=== PATIENT | female | born 1965 | race Caucasian/White ===

== ENCOUNTER 2016-08-29 14:30 | Emergency (ER) | payer OTHER ==
[~2016-08-29] VITALS: Ht 172.7 cm; Wt 67.8 kg
[~2016-08-29 14:30] MED LIST: IBUP800T25 PO; INSULIN SQ; LOVASTATIN PO; METF-480 PO; NAPR-260 PO; OMEP40CA3 PO; SITA100T8 PO; TRAM50TA2 PO
[2016-08-29 14:55] VITALS: Ht 172.7 cm; Wt 67.8 kg
[2016-08-29] MEDS ORDERED: ONDANSETRON (ODT) 4 MG TAB ODT STA (17:24)
[2016-08-29] MEDS ORDERED: KETOROLAC 60 MG INJ IM STA (17:24)
[2016-08-29] MEDS ORDERED: HYDROCODONE/APAP (5/325) TAB PO ONE (17:30)
--- NOTE | 2016-08-29 18:14 | RADRPT ---
PROCEDURE: XR shoulder. CLINICAL INDICATION: Pain for months TECHNIQUE: Three views of the left shoulder were performed. COMPARISON: None available. FINDINGS: There is normal mineralization and alignment. No fracture or osseous lesion is identified. Mild narr owing of the glenohumeral joint is present. The acromioclavicular articulation is intact. Curviline ar calcification in the region of the greater tuberosity is consistent with calcific tendinosis/burs itis RPTAT:HJJR IMPRESSION: 1. Calcific tendinosis/bursitis of the left shoulder. 2. Mild glenohumeral joint degenerative narrowing. Physician Monika Date Time Electronically viewed and signed by Physician Monika on 08/29/2016 18:13 JR/
[2016-08-29] MEDS ORDERED: TRAM50TA2 PO (18:26)
[2016-08-29] MEDS ORDERED: NAPR-260 PO (18:27)
[2016-08-29 19:01] VITALS: BP 160/77; PULSE 72; RESP 18; TEMP 98.7
--- NOTE | 2016-08-29 19:11 | ERD ---
ER Documentation Chief Complaint Date/Time DATE: 08/29/16 TIME: 19:10 Chief Complaint LT SIDED NECK & ARM PAIN STARTING YESTERDAY HPI This patient is a 51-year-old female with history of chronic left shoulder and arm pain with cervical radiculopathy, type 2 diabetes, and elevated cholesterol presenting to the emergency department for severe left shoulder pain with radiation to the left arm and left hand ongoing for 8 months but worsening over the past week. The patient has taken ibuprofen at home with no relief of symptoms. The patient states the pain sometimes wakes her up from sleep. The patient took no medication today. The patient denies any falls, trauma, or other symptoms at this time peer ROS All systems reviewed and are negative except as per history of present illness. Medications Home Meds Active Scripts Naproxen* (Naprosyn*) 500 Mg Tablet, 500 MG PO BID Y for PAIN AND/OR INFLAMMATION, #30 TAB Prov:JACKIE BLANCO PA-C 08/29/16 Tramadol HCl (Tramadol HCl) 50 Mg Tablet, 50 MG PO Q4 Y for PAIN, #20 TAB Prov:JACKIE BLANCO PA-C 08/29/16 Naproxen* (Naprosyn*) 500 Mg Tablet, 500 MG PO BID Y for PAIN AND/OR INFLAMMATION, #30 TAB Prov:ROBEL VILLA PA-C 04/15/16 Tramadol HCl (Tramadol HCl) 50 Mg Tablet, 50 MG PO Q6 Y for PAIN, #20 TAB Prov:ROBEL VILLA PA-C 04/15/16 Reported Medications [Lovastatin] No Conflict Check, PO 03/28/15 [Insulin] No Conflict Check, SQ 03/28/15 Ibuprofen* (Ibuprofen*) 800 Mg Tablet, 800 MG PO Q8, TAB 03/28/15 Omeprazole* (Prilosec*) 40 Mg Capsule.dr, 40 MG PO DAILY, CAP 10/05/14 Sitagliptin* (Januvia*) 100 Mg Tablet, 100 MG PO DAILY, TAB 10/05/14 Metformin* (Glucophage*) 850 Mg Tablet, 850 MG PO BID WITH MEALS, TAB 10/05/14 Allergies Allergies: Coded Allergies: No Known Allergy (Unverified , NS, 08/29/16) PMhx/Soc History of Surgery: Yes (APPENDECTOMY, ) Anesthesia Reaction: No Hx Neurological Disorder: No Hx Respiratory Disorders: No Hx Cardiac Disorders: Yes (HYPERCHOLESTEROLEMIA; HYPERTENSION) Hx Psychiatric Problems: No Hx Miscellaneous Medical Probl: Yes (dm) Hx Alcohol Use: No Hx Substance Use: Yes (OCCASIONAL) Hx Tobacco Use: No Smoking Status: Never smoker FmHx Noncontributory for chief complaint Physical Exam Vitals Vital Signs Date Time Temp Pulse Resp B/P Pulse Ox O2 Delivery O2 Flow Rate FiO2 08/29/16 19:01 98.7 72 18 160/77 98 Room Air 08/29/16 14:55 98.6 88 16 131/61 95 Physical Exam INITIAL VITAL SIGNS: Reviewed by me. GENERAL: Alert and interactive. No acute distress. HEAD: Head is normocephalic and atraumatic. EYES: EOMI. No scleral icterus. No conjunctival injection. ENT: Moist mucosa. NECK: Supple. Full range of motion. RESPIRATORY: Normal respiratory effort. Clear breath sounds bilaterally. No wheezing, rales, or rhonchi. CV: Regular rate and rhythm. Normal S1 S2. No S3 or S4. No murmurs. ABDOMEN: Soft, non-distended, non-tender. No guarding. No rebound. No masses. EXTREMITIES: The patient has tenderness to palpation of the left shoulder with slightly limited passive and active range of motion secondary to pain. The patient has no point tenderness to the left humerus, left forearm, or the left hand. There is no ecchymosis noted to the left upper extremity. There is no edema noted to the left upper extremity. All other extremities are normal in appearance. SKIN: Warm and dry. NEUROLOGIC: Alert and oriented x 4. Speech is normal. Moves all extremities equally. No motor or sensory deficits noted. Results 24 hrs Current Medications Medications (Trade) Dose Ordered Sig/Lauren Route PRN Reason Start Time Stop Time Status Last Admin Dose Admin Ketorolac Tromethamine (Toradol) 60 mg ONCE STAT IM 08/29/16 17:24 08/29/16 17:27 DC 08/29/16 17:47 Acetaminophen/ Hydrocodone Bitart (Genoa (5/325)) 1 tab ONCE ONCE PO 08/29/16 17:30 08/29/16 17:31 DC 08/29/16 17:47 Ondansetron HCl (Zofran Odt) 4 mg ONCE STAT ODT 08/29/16 17:24 08/29/16 17:27 DC 08/29/16 17:46 Procedures/MDM EMERGENCY DEPARTMENT COURSE / MEDICAL DECISION MAKING: This is a 51-year-old female who comes to the emergency room secondary to complaints of left shoulder and left arm pain. The patient was given IM Toradol and p.o. Zofran and p.o. Genoa in the department. On re-evaluation, the patient was feeling improved. Radiology: PROCEDURE: XR shoulder. CLINICAL INDICATION: Pain for months TECHNIQUE: Three views of the left shoulder were performed. COMPARISON: None available. FINDINGS: There is normal mineralization and alignment. No fracture or osseous lesion is identified. Mild narrowing of the glenohumeral joint is present. The acromioclavicular articulation is intact. Curvilinear calcification in the region of the greater tuberosity is consistent with calcific tendinosis/ bursitis RPTAT:HJJR IMPRESSION: 1. Calcific tendinosis/bursitis of the left shoulder. 2. Mild glenohumeral joint degenerative narrowing. Physician Monika Date Time Electronically viewed and signed by Physician Monika on 08/29/2016 18:13 An EKG was obtained due to the nature of the patient's left arm pain. EKG: Interpreted by ED physician Rate/Rhythm: Normal sinus rhythm with a rate of 87 bpm. Normal axis. Normal intervals QRS, ST, T-waves: No changes consistent w/ acute ischemia Impression: No evidence of ischemia or arrhythmia The primary diagnosis is left shoulder pain most likely attributed to tendinosis and degenerative changes. I have low suspicion for septic joint, cellulitis, shoulder dislocation, fracture, or other emergent conditions at this time. Discharge: I have discussed the lab results and diagnostic findings with the patient and answered any questions or concerns. The patient was discharged with a prescription for naproxen and tramadol. The patient was advised to followup with their PMD in 1-2 days and to return to the Emergency Department if there are any new or worsening symptoms. The patient was advised to see an orthopedic surgeon or specialist if symptoms continue and she understands and agrees with this information. The patient understood and agreed with the diagnosis, treatment and plan. The patient is stable for discharge at this time. Departure Diagnosis: Primary Impression: Left shoulder pain Chronicity: chronic Qualified Code: M25.512 - Chronic left shoulder pain Condition: Fair Patient Instructions: Shoulder Pain (Uncertain Cause) [facility] Usted se castle hecho un examen mdico de control que le indica que no est en karen condicin que requiera tratamiento urgente en el Departamento de Emergencia. Un estudio ms profundo y el tratamiento de michaud condicin pueden esperar sin ningn riesgo hasta que usted sea atendida/o en el consultorio de michaud mdico o karen cl river. Es responsabilidad suya arreglar karen cammie para el seguimiento del kim. MANEJO DE CONDICIONES NO URGENTES EN EL FUTURO 1) Si usted tiene un mdico de atencin primaria: Usted debera llamar a michaud mdico de atencin primaria antes de venir al departamento de emergencia. Despus de las horas de consultorio, michaud doctor o michaud asociado/a est disponible por telfono. El mdico o enfermero de bailey en el servicio telefnico puede asesorarle por brian medio para atender el problema, o kim contrario se puede programar karen cammie. 2) Si usted no tiene un mdico de atencin primaria: Llame al mdico o clnica de referencia que aparece abajo viraj las horas de consultorio para hacer karen cammie para que le vean. CLINICAS: [facility] [phone] [address] [facility] [phone] [facility] [phone] [address] [facility] [phone] [address] [facility] [phone] [address] [facility] [phone] [address] Additional Instructions: No mas mejor en 2-3 perez, regresar. Mas peor en 24 horas, regresear rapidamente. Ir a doctor primario in 5-7 perez. Usar instrucciones cuando joan medicamento. JACKIE BLANCO PA-C Aug 29, 2016 19:11
== END 2016-08-29 19:01 | disposition home or self-care (01) ==
LOC: FTE 14:30
DX: M25.512 Pain in left shoulder (principal); I10 Essential (primary) hypertension; E11.9 Type 2 diabetes mellitus without complications; Z79.4 Long term (current) use of insulin; Z79.84 Long term (current) use of oral hypoglycemic drugs
CPT/HCPCS: 73030; 93005; 96372; J1885; Z7502; Z7610

== ENCOUNTER 2017-06-12 05:35 | Day surgery (SDC) | payer OTHER ==
[2017-06-11 09:35] VITALS: BMI 23.1
[~2017-06-12] VITALS: Ht 162.6 cm; Wt 64.4 kg
[2017-06-12] VITALS (15 sets, daily range): BP systolic 87–124; BP diastolic 62–77; PULSE 63–100; RESP 6–23; Ht 162.6 cm; Wt 64.4 kg
[2017-06-12] MEDS ORDERED: CEFAZOLIN 2 GM/50 ML (PMX) 50 ML IVPB SCH (06:00)
[2017-06-12] MEDS ORDERED: SUCR1TAB56 PO (06:25)
[2017-06-12] MEDS ORDERED: HYDROXYCHLOROQUINE PO (06:25)
[2017-06-12] MEDS ORDERED: CYCL-319 PO (06:25)
[2017-06-12] MEDS ORDERED: LOVA20TA PO (06:25)
[2017-06-12] MEDS ORDERED: METF1000 PO (06:25)
[2017-06-12] MEDS ORDERED: FOLI-49 PO (06:25)
[2017-06-12] MEDS ORDERED: INSU100I33 SC (06:25)
[2017-06-12] MEDS ORDERED: PANT40TA4 PO (06:25)
[2017-06-12] MEDS ORDERED: GEMF600T60 PO ×2 (06:25)
[2017-06-12] MEDS ORDERED: LEFL20TA18 PO (06:25)
[2017-06-12] MEDS ORDERED: BUPIVACAINE 0.5% (SDV) 30 ML INJ ONE (06:41)
[2017-06-12] MEDS ORDERED: LIDOCAINE 2% (SDV) 5 ML INJ ONE (07:00)
[2017-06-12] MEDS ORDERED: ROCURONIUM 50 MG INJ ONE (07:00)
[2017-06-12] MEDS ORDERED: CEFAZOLIN 1 GM INJ ONE (07:00)
--- NOTE | 2017-06-12 07:02 | HPN ---
Date/Time of Note Date/Time of Note DATE: 06/12/17 TIME: 07:02 Interval H&P Admission Note Pt. seen H&P reviewed: No system changes DARYL TEE DPM Jun 12, 2017 07:02
[2017-06-12] MEDS ORDERED: PROPOFOL 20 ML ONE (07:18)
[2017-06-12] MEDS ORDERED: FENTAnyl 50 MCG/ML VIAL ONE (07:22)
[2017-06-12] MEDS ORDERED: BUPIVACAINE 0.5% (SDV) 30 ML INJ INJ ONE (07:30)
[2017-06-12] MEDS ORDERED: ACETAMINOPHEN 1000MG/100ML IV 100 ML ONE (07:56)
[2017-06-12] MEDS ORDERED: KETOROLAC 30 MG INJ ONE (07:56)
[2017-06-12] MEDS ORDERED: DEXAMETHASONE 4 MG/ML 1 ML INJ ONE (07:59)
[2017-06-12] MEDS ORDERED: ONDANSETRON 4 MG INJ ONE (07:59)
[2017-06-12] MEDS ORDERED: SUGAMMADEX SODIUM 200 MG/2 ML VIAL IV ONE (08:17)
[2017-06-12] MEDS ORDERED: EPHEDrine SULFATE 50 MG/5 ML SYG IV PRN (08:30)
[2017-06-12] MEDS ORDERED: MEPERIDINE 25 MG INJ IV PRN (08:30)
[2017-06-12] MEDS ORDERED: KETOROLAC 30 MG INJ IV PRN (08:30)
[2017-06-12] MEDS ORDERED: hydrALAzine 20 MG INJ IV PRN (08:30)
[2017-06-12] MEDS ORDERED: DIPHENHYDRAMINE 50 MG INJ IV PRN (08:30)
[2017-06-12] MEDS ORDERED: ONDANSETRON 4 MG INJ IV PRN (08:30)
[2017-06-12] MEDS ORDERED: HYDROmorphONE (0.2 MG/ML) 10ML SYG IV PRN ×2 (08:30)
[2017-06-12] MEDS ORDERED: LABETALOL HCL 20MG INJ IV PRN (08:30)
[2017-06-12] MEDS ORDERED: FENTAnyl 50 MCG/ML VIAL IV PRN ×3 (08:30)
[2017-06-12] MEDS ORDERED: OXYCODONE/ACETAMINOPHEN (5/325) TAB PO PRN (08:30)
[2017-06-12] MEDS ORDERED: MIDAZOLAM 1 MG/ML 2 ML INJ IV PRN (08:30)
[2017-06-12] MEDS ORDERED: METOCLOPRAMIDE 10 MG INJ IV PRN (08:30)
[2017-06-12] MEDS: HYDROmorphONE (0.2 MG/ML) 10ML SYG IV PRN ×4 (08:35→09:29)
--- NOTE | 2017-06-12 08:35 | SIPON ---
Date/Time of Note Date/Time of Note DATE: 06/12/17 TIME: 08:33 Operative Report Preoperative Diagnosis Exostosis of right hallux Exostosis of left hallux Right big toe pain Left big toe pain Postoperative Diagnosis Exostosis of right hallux Exostosis of left hallux Right big toe pain Left big toe pain Operation/Procedure Performed Exostectomy right hallux Exostectomy left hallux Surgeon see signature line housing assistant none Anesthesia: general Estimated blood loss: minimal Transfusion Required none Specimen Bone from right hallux Bone from left hallux Grafts/Implants none Complications none DARYL TEE DPM Jun 12, 2017 08:35
[2017-06-12] MEDS: OXYCODONE/ACETAMINOPHEN (5/325) TAB PO PRN ×2 (10:31→11:44)
--- NOTE | 2017-06-13 08:22 | RADRPT ---
PROCEDURE: XR RIGHT FOOT. CLINICAL INDICATION: Exostosis of the hallux TECHNIQUE: Three views of the right foot were obtained. COMPARISON: No prior studies are available for comparison. FINDINGS: There is a bony prominence of the medial proximal metaphysis of the distal phalanx of the great toe. Findings are most consistent with an exostosis. Transverse dimension of the base of the probable ex ostosis is 4 mm. No evidence for fracture, subluxation or dislocation. No bone destructive or erosiv e changes are seen. IMPRESSION: 1. Bony prominence of the medial proximal metaphysis of the distal phalanx of the great toe most co nsistent with an exostosis. 2. No evidence for fracture, subluxation or dislocation. 3. No erosive changes are seen. RPTAT: XX .Yayo Cisneros MD, Date Time Electronically viewed and signed by .Yayo Cisneros MD, on 06/13/2017 08:21 .T/
--- NOTE | 2017-06-13 08:49 | RADRPT ---
PROCEDURE: XR Foot. CLINICAL INDICATION: Exostosis of hallux, postoperative evaluation TECHNIQUE: Three views of the left foot are available for review. COMPARISON: None available FINDINGS: No acute fracture or dislocation is identified. Bony mineralization is normal. 4 mm exostosis is see n arising from the proximal/medial aspect of the first toe distal phalanx. There is no radiodense fo reign body. IMPRESSION: 1. Small exostosis is seen arising from the proximal/medial aspect of first toe distal phalanx. 2. No acute fracture or dislocation. RPTAT: AAQQ .Thiago Alamo MD, MD Date Time Electronically viewed and signed by .Thiago Alamo MD, MD on 06/13/2017 08:48 .R/
== END 2017-06-12 12:10 | disposition home or self-care (01) ==
LOC: SUR 05:35 → SDS 05:35 → SUR 12:10
PROVIDERS: ATTEND Podiatrist Foot & Ankle Surgery
DX: D16.32 Benign neoplasm of short bones of left lower limb (principal); D16.31 Benign neoplasm of short bones of right lower limb; E11.9 Type 2 diabetes mellitus without complications; E78.5 Hyperlipidemia, unspecified
CPT/HCPCS: 28124; 73630; 82962; 88304; 88311; J0131; J0690; J1100; J1170; J1885; J2405; J3010; L3260; Z7512; Z7610

== ENCOUNTER 2018-02-16 10:41 | Emergency (ER) | END 2018-02-16 16:09 | disposition home or self-care (01) ==

== ENCOUNTER 2018-05-11 09:30 | Day surgery (SDC) | END 2018-05-14 10:36 | disposition home or self-care (01) ==

== ENCOUNTER 2018-06-19 16:07 | Emergency (ER) | END 2018-06-19 18:12 | disposition home or self-care (01) ==